=== PATIENT | male | born 1970 | race Caucasian/White ===

== ENCOUNTER 2023-08-10 05:50 | Inpatient (IN) | payer OTHER ==
[2023-08-01 13:04] LABS: BASOPHILS # (AUTO) 0.03 K/uL (0.00-0.20); BASOPHILS % (AUTO) 0.6 % (0.0-5.0); EOSINOPHILS # (AUTO) 0.07 K/uL (0.00-0.70); EOSINOPHILS % (AUTO) 1.3 % (0.0-8.0); HEMATOCRIT 39.9 % (42-54); IMMATURE GRANULOCYTE ABSOLUTE 0.03 K/uL (0-1); LYMPHOCYTES % (AUTO) 18.3 % (21.0-51.0); MEAN CORPUSCULAR HEMOGLOBIN 32.6 pg (27.0-33.0); MEAN CORPUSCULAR HGB CONC 35.1 g/dL (32.0-36.0); MEAN CORPUSCULAR VOLUME 92.8 fL (79-99); MONOCYTES # (AUTO) 0.5 K/uL (0.1-1.0); MONOCYTES % (AUTO) 8.3 % (3.0-13.0); NEUTROPHILS # (AUTO) 3.8 K/uL (1.8-7.7); NEUTROPHILS % (AUTO) 70.9 % (40.0-77.0); PLATELET COUNT (AUTO) 209 K/uL (130-400); RED CELL DISTRIBUTION WIDTH 12.8 % (11.0-15.5); WHITE BLOOD COUNT (AUTO) 5.4 K/uL (4.8-10.8)
[2023-08-01 13:15] LABS: CREATININE 1.4 mg/dL (0.5-1.5); POTASSIUM 4.1 mmol/L (3.5-5.1)
[2023-08-01 13:31] LABS: INR < 0.93 (0.85-1.15); PROTHROMBIN TIME 10.6 SEC (9.6-11.6)
[2023-08-01 13:32] LABS: PARTIAL THROMBOPLASTIN TIME 27.4 SEC (26.3-35.5)
[2023-08-01 13:35] VITALS: BP 140/80; PULSE 84; RESP 14
[~2023-08-10] VITALS: Ht 188 cm; Wt 103.1 kg
[2023-08-10] VITALS (26 sets, daily range): BP systolic 129–156; BP diastolic 67–108; PULSE 77–114; RESP 15–19; O2SAT 98
[~2023-08-10 05:50] MED LIST: ATOR40TA71 PO; FLUO40CA49 PO; GABA600T10 PO; GLIP5TAB15 PO; LISI5TAB21 PO; PIOG30TA70 PO; SILDENAFIL PO; TERB250T89 PO
[2023-08-10] MEDS ORDERED: 0.9%NACL 1000ML 1,000 ML IV ONE (06:21)
[2023-08-10] MEDS ORDERED: MIDAZOLAM HCL 1 MG/ML 2ML VIAL ONE (07:01)
[2023-08-10] MEDS ORDERED: ROCURONIUM 10MG/1ML SYR 10 MG/ML ML ONE ×3 (07:01→12:10)
[2023-08-10] MEDS ORDERED: PROPOFOL 10 MG/ML 20ML VIAL IV ONE (07:01)
[2023-08-10] MEDS ORDERED: FENTANYL CITRATE PF 50 MCG/1 ML 5ML AMP IV ONE (07:02)
[2023-08-10] MEDS ORDERED: ONDANSETRON 4MG INJ ONE (07:15)
[2023-08-10] MEDS ORDERED: LIDOCAINE HCL 1% 20 ML VIAL ONE (07:47)
[2023-08-10] MEDS ORDERED: EPINEPHRINE PF 1MG (1:1,000) 1 MG/ML AMP ONE (07:48)
[2023-08-10] MEDS ORDERED: FENTANYL CITRATE PF 50 MCG/1 ML 2ML VIAL ONE ×3 (08:34→14:03)
[2023-08-10] MEDS ORDERED: CEFAZOLIN SODIUM 1 GM VIAL ONE ×2 (09:35→10:09)
[2023-08-10] MEDS ORDERED: PHENYLEPHRINE HCL 10 MG/ML 1ML VIAL IV ONE (09:42)
[2023-08-10] MEDS ORDERED: LIDOCAINE 1%-EPI 1:100,000 20 ML VIAL IJ ONE (09:50)
[2023-08-10] MEDS ORDERED: MEPERIDINE-PF 25 MG/ML SYG ONE ×2 (12:06→14:41)
[2023-08-10] MEDS ORDERED: BACITRACIN 28.4 GM OINT TP ONE (13:21)
[2023-08-10] MEDS ORDERED: KETOROLAC 30MG VIAL (30MG/ML) ONE (13:29)
[2023-08-10] MEDS ORDERED: NEOSTIGMINE 5MG/5ML SYR IV ONE (13:32)
[2023-08-10] MEDS ORDERED: GLYCOPYRROLATE 1 MG/5 ML SYRINGE ONE (13:32)
[2023-08-10] MEDS ORDERED: MORPHINE 2 MG SYG IV PRN (16:30)
[2023-08-10] MEDS ORDERED: ONDANSETRON 4MG INJ IV PRN (16:30)
[2023-08-10] MEDS ORDERED: HYDRALAZINE 20MG/ML VIAL IV PRN (16:30)
[2023-08-10] MEDS ORDERED: NITROGLYCERIN 0.4 MG SL TAB SL PRN (16:30)
[2023-08-10] MEDS ORDERED: GLUCAGON 1MG KIT 1 MG ML IM PRN (16:30)
[2023-08-10] MEDS ORDERED: DEXTROSE 50%-WATER 50 ML DISP.SYRIN IV PRN (16:30)
[2023-08-10] MEDS ORDERED: GUAIFENESIN-DM 200/20 MG 10 ML PO PRN (16:30)
[2023-08-10] MEDS ORDERED: DIPHENHYDRAMINE HCL 25 MG CAPSULE PO PRN (16:30)
[2023-08-10] MEDS ORDERED: LACTULOSE 20 GM/30 ML UDCUP PO PRN (16:30)
[2023-08-10] MEDS ORDERED: ACETAMINOPHEN 325 MG TAB PO PRN (16:30)
[2023-08-10] MEDS ORDERED: MAG/ALUM/SIMETH 30 ML UDCUP PO PRN (16:30)
[2023-08-10] MEDS: INSULIN HUMULIN R 100 UNIT/ML 3ML SQ SCH ×2 (18:49→20:58)
[2023-08-10 19:22] LABS: BASOPHILS # (AUTO) 0.02 K/uL (0.00-0.20); BASOPHILS % (AUTO) 0.2 % (0.0-5.0); HEMATOCRIT 37.6 % (42-54); IMMATURE GRANULOCYTE ABSOLUTE 0.06 K/uL (0-1); LYMPHOCYTES # (AUTO) 0.6 K/uL (1.0-4.8); LYMPHOCYTES % (AUTO) 5.9 % (21.0-51.0); MEAN CORPUSCULAR HEMOGLOBIN 31.6 pg (27.0-33.0); MEAN CORPUSCULAR HGB CONC 33.2 g/dL (32.0-36.0); MEAN CORPUSCULAR VOLUME 95.2 fL (79-99); MONOCYTES # (AUTO) 0.3 K/uL (0.1-1.0); MONOCYTES % (AUTO) 2.7 % (3.0-13.0); NEUTROPHILS # (AUTO) 9.8 K/uL (1.8-7.7); NEUTROPHILS % (AUTO) 90.6 % (40.0-77.0); PLATELET COUNT (AUTO) 199 K/uL (130-400); RED BLOOD CELL COUNT(AUTO) 3.95 MIL/uL (4.50-6.20); RED CELL DISTRIBUTION WIDTH 12.8 % (11.0-15.5); WHITE BLOOD COUNT (AUTO) 10.8 K/uL (4.8-10.8)
[2023-08-10 19:27] LABS: CREATININE 1.7 mg/dL (0.5-1.5)
[2023-08-10 19:32] LABS: ALBUMIN 3.4 g/dL (3.5-5.0); BILIRUBIN,TOTAL 0.3 mg/dL (0.2-1.0); TOTAL PROTEIN, SERUM 6.5 g/dL (6.0-8.3)
[2023-08-10 19:35] LABS: HEMOGLOBIN A1C 6.3 % (4.0-6.0)
[2023-08-10] MEDS: FAMOTIDINE 20MG VIAL IV SCH (20:05)
[2023-08-10] MEDS ORDERED: SOLU-MEDROL 125MG VIAL IVP ONE (20:30)
[2023-08-10] MEDS ORDERED: KETOROLAC 15MG/ML VIAL (15MG/ML) IV PRN (20:30)
[2023-08-10] MEDS: ACETAMINOPHEN 325 MG TAB PO PRN (20:57)
[2023-08-10] MEDS: KETOROLAC 30MG VIAL (30MG/ML) IVP PRN (22:22)
[2023-08-11 00:25] VITALS: BP 141/88; PULSE 98; RESP 18
[2023-08-11] MEDS: ACETAMINOPHEN 325 MG TAB PO PRN (03:32)
[2023-08-11 03:54] VITALS: BP 146/81; PULSE 98; RESP 18
[2023-08-11] MEDS: KETOROLAC 30MG VIAL (30MG/ML) IVP PRN (04:26)
[2023-08-11] MEDS: INSULIN HUMULIN R 100 UNIT/ML 3ML SQ SCH ×2 (06:03→11:51)
[2023-08-11 08:00] VITALS: BP 137/84; PULSE 94; RESP 20; O2SAT 97
[2023-08-11] MEDS: FAMOTIDINE 20MG VIAL IV SCH (09:34)
[2023-08-11 12:00] VITALS: BP 141/81; PULSE 88; RESP 20
[2023-08-11] MEDS ORDERED: CEPH500B PO (16:04)
== END 2023-08-11 16:05 | disposition home or self-care (01) | DRG 581 ==
LOC: DAH 05:50 → DAHIP 05:51 → 3BH 17:31
PROVIDERS: ADMIT Internal Medicine; ATTEND Internal Medicine
PROC: 07T20ZZ Resection of Left Neck Lymphatic, Open Approach (ICD-10-PCS; principal; 2023-08-10 09:09)
DX: R22.1 Localized swelling, mass and lump, neck (principal); E11.9 Type 2 diabetes mellitus without complications; E78.5 Hyperlipidemia, unspecified; I10 Essential (primary) hypertension; M54.2 Cervicalgia; Z92.3 Personal history of irradiation; Z92.21 Personal history of antineoplastic chemotherapy
CPT/HCPCS: 36415; 80048; 80053; 82948; 83036; 85025; 85610; 85730; A4344; G0378; J0171; J0690; J1815; J1885; J2175; J2250; J2270; J2371; J2405; J2704; J2710; J2930; J3010; J3490; J7030; J7120; Q0163; A4215; A4221; A4222; A4223; A4600; A4649; A4663; A4930; A6260

== ENCOUNTER 2024-04-18 08:56 | Day surgery (SDC) | payer OTHER ==
[~2024-04-18] VITALS: Ht 188 cm; Wt 77.1 kg
[2024-04-18] VITALS (9 sets, daily range): BP systolic 123–149; BP diastolic 53–97; PULSE 79–95; RESP 14–18
[~2024-04-18 08:56] MED LIST changes: -FLUO40CA49 PO; +GABA300C PO; -GABA600T10 PO; +MORPHINE 5 MG PO; +MORPHINE PO; +OMEP40CA21 PO; -PIOG30TA70 PO; -SILDENAFIL PO; -TERB250T89 PO
[2024-04-18] MEDS: 0.9%NACL 1000ML 1,000 ML IV ONE (10:31)
[2024-04-18] MEDS ORDERED: PROPOFOL 10 MG/ML 20ML VIAL IV ONE (11:31)
[2024-04-18] MEDS ORDERED: LIDOCAINE HCL 1% 20 ML VIAL ONE (11:32)
== END 2024-04-18 13:10 | disposition home or self-care (01) ==
LOC: DAH 08:56 → SUH 08:56
PROVIDERS: ATTEND Internal Medicine Gastroenterology
DX: R13.10 Dysphagia, unspecified (principal); K21.00 Gastro-esophageal reflux disease with esophagitis, without bleeding; K29.70 Gastritis, unspecified, without bleeding; K31.89 Other diseases of stomach and duodenum; I10 Essential (primary) hypertension; E78.9 Disorder of lipoprotein metabolism, unspecified; E78.00 Pure hypercholesterolemia, unspecified; E11.9 Type 2 diabetes mellitus without complications; Z79.84 Long term (current) use of oral hypoglycemic drugs; Z79.899 Other long term (current) drug therapy; Z72.89 Other problems related to lifestyle; Z82.49 Family history of ischemic heart disease and other diseases of the circulatory system; Z83.79 Family history of other diseases of the digestive system; Z87.891 Personal history of nicotine dependence; Z85.828 Personal history of other malignant neoplasm of skin; Z98.890 Other specified postprocedural states
CPT/HCPCS: 43239; 82948 ×2; J7030; J2704; A4620; A4215 ×2; A4223; A4222; A4221; A4663; A4606; J3490